=== PATIENT | female | born 1970 | race Caucasian/White ===

== ENCOUNTER 2016-04-04 17:58 | Emergency (ER) | payer MEDICAID, OTHER ==
--- NOTE | 2016-04-04 18:36 | Emergency Department Record ---
History of Present Illness - General Chief complaint: Extremity Problem Stated complaint: L CALF SWOLLEN Time Seen by Provider: 04/04/16 18:18 Source: Patient Mode of Arrival: Ambulatory Limitations: No limitations - History of Present Illness Initial comments: 46 yo female presents to ED with a CC of left paul pain and swelling that began earlier today. Patient reports that her symptoms were worse 1 hours ago, but have since improved. Patient reports a history of bleeding disorder (Von Willebrand's) resulting in easy bleeding, denies history of DVT/PE. Patient denies any for of injury to the lower extremity. MD Complaint: Extremity pain Onset/Timin -: Hour(s) Location: Left, Lower Leg History of Same: No Severity scale (1-10): 8 Quality: Aching Consistency: Constant Improves with: Nothing Worsens with: Nothing Associated Symptoms: Denies other symptoms - Related Data Home Medications Medication Instructions Recorded Confirmed Last Taken Meloxicam 15 mg PO QD tab 06/04/15 Unknown Allergies Allergy/AdvReac Type Severity Reaction Status Date / Time Blood Thinners AdvReac Pt has Uncoded 02/19/15 19:28 [facility] disease Travel Screening - Travel/Exposure Within Last 30 Days Have you traveled within the last 30 days?: No - Travel/Exposure Within Last Year Have you traveled outside the [place] in the last year?: No - Additonal Travel Details Have you been exposed to anyone with a communicable illness?: No - Travel Symptoms Symptom Screening: None Review of Systems Constitutional: Denies: Chills, Fever, Malaise, Night sweats Eyes: Denies: Eye discharge, Eye pain ENT: Denies: Congestion, Ear pain, Epistaxis Respiratory: Denies: Cough, Dyspnea Cardiovascular: Denies: Chest pain, Dyspnea on exertion Endocrine: Denies: Fatigue, Heat or cold intolerance Gastrointestinal: Denies: Abdominal pain, Nausea, Vomiting Musculoskeletal: Reports: Myalgia (leg calf pain). Denies: Arthralgia, Back pain, Gout, Joint swelling Skin: Denies: Bruising, Change in color, Change in hair/nails Neurological: Denies: Abnormal gait, Confusion, Headache Psychiatric: Denies: Anxiety Hematological/Lymphatic: Reports: Easy bleeding. Denies: Anemia, Blood Clots Past Medical History - SOCIAL HISTORY Smoking Status: Never smoker Alcohol Use: Occassional Drug Use: None - RESPIRATORY Hx Respiratory Disorders: Yes Hx Asthma: Yes - CARDIOVASCULAR Hx Cardio Disorders: No - NEURO Hx Neuro Disorders: No - GI Hx GI Disorders: No - Hx Genitourinary Disorders: No - ENDOCRINE Hx Endocrine Disorders: No - MUSCULOSKELETAL Hx Musculoskeletal Disorders: Yes Comment:: Neck Problems - PSYCH Hx Psych Problems: Yes Hx Anxiety: Yes Hx Depression: Yes - HEMATOLOGY/ONCOLOGY Hx Hematology/Oncology Disorders: Yes Hx Anemia: Yes (Carlos) Family Medical History Any Significant Family History?: No Family Hx Comment (NOT TO BE USED IN PLACE OF ITEMS BELOW): Pt was adopted and does not know hx Physical Exam - General General Appearance: Alert, Oriented x3, Cooperative, No acute distress, Other ( eating Perdomo's, well appearing on examination) Limitations: No limitations - Head Head exam: Atraumatic, Normocephalic, Normal inspection Head exam detail: negative: Abrasion, Contusion, Link's sign, General tenderness, Hematoma, Laceration - Eye Eye exam: Normal appearance. negative: Conjunctival injection, Periorbital swelling, Periorbital tenderness, Scleral icterus - ENT Ear exam: negative: Auricular hematoma, Auricular trauma Nasal Exam: negative: Active bleeding, Discharge, Dried blood, Foreign body Mouth exam: negative: Drooling, Laceration, Muffled voice, Tongue elevation - Neck Neck exam: Normal inspection. negative: Meningismus, Tenderness - Respiratory Respiratory exam: Normal lung sounds bilaterally. negative: Respiratory distress, Rhonchi, Stridor, Wheezes - Cardiovascular Cardiovascular Exam: Regular rate, Normal rhythm, Normal heart sounds - GI/Abdominal GI/Abdominal exam: Soft. negative: Rebound, Rigid, Tenderness - Rectal Rectal exam: Deferred - exam: Deferred - Extremities Extremities exam: Normal inspection, Calf tenderness, Full ROM. negative: Pedal edema - Back Back exam: Denies: CVA tenderness (R), CVA tenderness (L) - Neurological Neurological exam: Alert, Normal gait, Oriented X3 - Psychiatric Psychiatric exam: Normal affect, Normal mood - Skin Skin exam: Normal color. negative: Abrasion Type of lesion: negative: abrasion Course Vital Signs 04/04/16 18:16 Temperature 98.8 F Pulse Rate 65 Respiratory 18 Rate Blood Pressure 147/89 Pulse Ox 97 - Reevaluation(s) Reevaluation #1: 04/04/16 18:32 Patient seen and examined, offered transfer for doppler, patient declined. Will perform D-Dimer with the understanding that if the level is above the cut- off value, transfer will be needed. Patient agrees with plan as discussed. Reevaluation #2: 04/04/16 18:56 D-Dimer reviewed and appears negative for DVT. Patient appears stable for discharge at this time. Disposition Disposition: Discharge Clinical Impression: Right calf pain Disposition: Home, Self-Care Condition: (2) Stable Instructions: Muscle Cramp (ED) Additional Instructions: Return to ED if your symptoms worsen or if you have any concerns. Follow-up with your family doctor in 3-5 days as directed. Forms: Patient Portal Access Time of Disposition: 18:56
== END 2016-04-04 19:06 | disposition home or self-care (01) ==
LOC: ER 17:58
DX: M79.662 Pain in left lower leg (principal); D68.0 Von Willebrand disease
CPT/HCPCS: 85379; 99283